=== PATIENT | male | born 1990 | race African-American/Black ===

== ENCOUNTER 2019-04-04 13:29 | Emergency (ER) | payer SELFPAY ==
[~2019-04-04] VITALS: Ht 177.8 cm; Wt 122.7 kg
[2019-04-04 13:34] VITALS: BP 160/92; TEMP 97.1
[2019-04-04 14:47] VITALS: PULSE 82
== END 2019-04-04 14:47 | disposition home or self-care (01) ==
LOC: COL.ER 13:29
DX: S06.0X9A Concussion with loss of consciousness of unspecified duration, initial encounter (principal); W22.8XXA Striking against or struck by other objects, initial encounter

== ENCOUNTER 2019-04-11 08:49 | Outpatient (RCR) | payer OTHER | END 2019-04-25 09:59 | disposition home or self-care (01) | LOC: WSOH 08:49 | DX: S06.0X0A Concussion without loss of consciousness, initial encounter (principal); R51 Headache; W20.8XXA Other cause of strike by thrown, projected or falling object, initial encounter; Y92.59 Other trade areas as the place of occurrence of the external cause; Y93.H3 Activity, building and construction; Y99.0 Civilian activity done for income or pay; F17.220 Nicotine dependence, chewing tobacco, uncomplicated ==

== ENCOUNTER 2019-08-25 08:10 | Emergency (ER) | payer BC ==
[~2019-08-25] VITALS: Ht 177.8 cm; Wt 125.5 kg
[2019-08-25 08:11] VITALS: TEMP 98.2
[2019-08-25] MEDS ORDERED: CEPHALEXIN500 M1 PO (09:44)
[2019-08-25] MEDS ORDERED: PERCOCET 325 MG1 TA2 PO (09:44)
[2019-08-25] MEDS ORDERED: CRUTCHES MC (09:45)
[2019-08-25 10:23] VITALS: BP 139/81; PULSE 84
== END 2019-08-25 10:24 | disposition home or self-care (01) ==
LOC: COL.ER 08:10
DX: S92.311A Displaced fracture of first metatarsal bone, right foot, initial encounter for closed fracture (principal); Z23 Encounter for immunization; F17.220 Nicotine dependence, chewing tobacco, uncomplicated; W23.0XXA Caught, crushed, jammed, or pinched between moving objects, initial encounter; Y92.59 Other trade areas as the place of occurrence of the external cause
CPT/HCPCS: J0690; J2405; J3010; Q4045